=== PATIENT | male | born 1965 | race Caucasian/White ===

== ENCOUNTER 2019-09-25 08:27 | Emergency (ER) | payer MEDICARE, SELFPAY ==
[2019-09-25] VITALS (8 sets, daily range): BP systolic 124–134; BP diastolic 77–99; PULSE 90–111; RESP 16–18; TEMP 36.8; O2SAT 90–99; BMI 27.8
--- NOTE | 2019-09-25 08:28 | ED_ITS ---
HPI - Abdominal Pain General: Chief Complaint: Abdominal Pain Stated Complaint: ABD PAIN Time Seen by Provider: 09/25/19 08:28 History of Present Illness: HPI narrative: Hx of Chron's dz. N/V/D for the past 3 to 4 days. Lower abd pain. Denies fever. MD elicited complaint: abdominal pain Pertinent past history: myocardial infarction Onset (ago): day(s) Pain Consistency: constant Location: Diffuse Severity: similar to previous episodes Quality: cramping, aching and burning Radiation: none Migration to: no migration Exacerbating factors: eating and movement Relieving factors: nothing Associated Symptoms: Reports GI cramping, diarrhea, dyspepsia, heartburn, nausea, poor appetite and vomiting; Denies fever(s) Review of Systems General: Reports: 10 or more systems reviewed and unremarkable except in HPI and below Const: Denies: fever GI: Reports: nausea, vomiting, heartburn/indigestion, diarrhea and cramping PFSH ED PFSH: Social History Smoking and tobacco status: current every day smoker Physical Exam Const: COMMON NORMALS: no apparent distress, average body habitus, oriented x3, no limitations, healthy appearing, alert and well nourished HENMT: COMMON NORMALS: normocephalic, head/scalp atraumatic, hearing grossly normal bilaterally, external ears normal, EAC's normal, TM's normal bilaterally, external nose normal, nasal mucous membranes and turbinates normal, moist oral mucous membranes, oropharynx normal, dentition normal and gingiva normal HEAD & SCALP: normocephalic and atraumatic NOSE: external nose normal and nasal mucous membranes and turbinates normal EXTERNAL EAR: Yes external ears normal EXTERNAL AUDITORY CANAL: EAC's normal TYMPANIC MEMBRANE: TM's normal bilaterally Eye: COMMON NORMALS: PERRL, EOMs intact bilaterally, conjunctivae normal, no scleral icterus, no papilledema, normal visual sanches by confrontation and fundi normal bilaterally CONJUNCTIVA: Yes conjunctivae normal PUPIL: Yes PERRL DIRECT OPHTHALMOSCOPY: Yes no papilledema and Yes fundi normal bilaterally Neck/C-Spine: COMMON NORMALS: full ROM, no lymphadenopathy, supple, no meningeal signs, no JVD, thyroid normal and no carotid bruits THYROID: thyroid normal Chest: COMMONS NORMALS: inspection of chest normal and palpation of chest normal Resp: COMMON NORMALS: normal respiratory effort, no retractions, no use of accessory muscles, clear to auscultation bilaterally and percussion normal AUSCULTATION: clear to auscultation bilaterally PERCUSSION: percussion normal Cardio: COMMON NORMALS: no JVD, regular rate, regular rhythm, S1 normal heart sound, S2 normal heart sound, no gallops, no clicks, no murmurs, no rub and per ipheral pulses 2+ throughout RATE: regular rate RHYTHM: regular rhythm HEART SOUNDS: S1 normal and S2 normal PERIPHERAL PULSES: pulses 2+ throughout GI: COMMON NORMALS: soft to palpation, no hepatosplenomegaly, no masses and no bruits INSPECTION: Yes normal to inspection AUSCULTATION: Yes hypoactive bowel sounds PALPATION: Yes soft, Yes tender, Yes no hepatosplenomegaly, No hernia, No mass and No ascites present PERCUSSION: dullness to percussion RECTAL EXAM: Yes deferred : COMMON NORMALS: Yes no CVA tenderness BLADDER/KIDNEY EXAM: Yes no CVA tenderness Back/Pelvis: COMMON NORMALS: no CVA tenderness, thoracic and lumbar spine normal to inspection, no thoracic nor lumbar tenderness, thoraco-lumbar ROM normal and straight leg raise negative bilaterally Extremity: COMMON NORMALS: normal to inspection, full ROM, normal capillary refill, no joint enlargement, no clubbing, cyanosis or edema, no calf tenderness and no pedal edema Neuro: COMMON NORMALS: oriented x3 SENSORIUM/ORIENTATION: Yes alert MENINGEAL SIGNS: Yes no meningeal signs Skin: COMMON NORMALS: no rashes or lesions noted, no wounds, skin turgor normal, no jaundice, no petechiae and no mottling GENERAL SKIN EXAM: no rashes or lesions noted and turgor normal Procedures Intubation Mg Given: 20 Mg Given: 200 Course Vital Signs: Vital signs: Vital Signs Pulse Rate 111 H 09/25/19 08:33 Respiratory Rate 16 09/25/19 08:33 Blood Pressure 132/78 09/25/19 08:33 Pulse Oximetry 97 09/25/19 08:33 Coding Level of Care Code ED Upper Cutter Out for Chg Fwd Exam Comprehensive
--- NOTE | 2019-09-25 08:35 | CTR_ITS ---
PROCEDURE INFORMATION: Exam: CT Abdomen And Pelvis With Contrast Exam date and time: 09/25/2019 9:06 AM Age: 54 years old Clinical indication: Abdominal pain; Generalized; Prior surgery; Surgery date: 6+ months; Surgery type: Small bowel; Patient HX: HX of crohn's; Additional info: Abd pain TECHNIQUE: Imaging protocol: Computed tomography of the abdomen and pelvis with intravenous contrast. Total DLP: 899.48 mGy-cm Radiation optimization: All CT scans at this facility use at least one of these dose optimization techniques: automated exposure control; mA and/or kV adjustment per patient size (includes targeted exams where dose is matched to clinical indication); or iterative reconstruction. Contrast material: Omnipaque 300; Contrast volume: 95 ml; Contrast route: IV; COMPARISON: CT abdomen pelvis w con* [id number] 07/19/2016 3:28 PM FINDINGS: Liver: Normal. No mass. Gallbladder and bile ducts: The gallbladder is surgically absent, with metallic clips in the gallbladder fossa. Pancreas: Normal. No ductal dilation. Spleen: Normal. No splenomegaly. Adrenals: Normal. No mass. Kidneys and ureters: Right mid renal anterolateral 4.8 mm calyceal calculus. Stomach and bowel: Right partial colectomy with ileo-transverse anastomosis. Short segment mid sigmoid colonic mild wall thickening (series 2, image 75), without pericolonic induration. Appendix: Right partial colectomy with ileo-transverse anastomosis. Intraperitoneal space: Mild marginal hyperdensity of a lobule of the right omentum redemonstrated with volume decrease, likely chronic infarction. Vasculature: Moderate aortic atherosclerotic calcification without aneurysm. The iliac arteries show moderate bilateral atherosclerotic calcifications without evidence of aneurysm. Calcified phleboliths are present in the lower pelvis bilaterally. Atherosclerotic calcifications are present involving the RCA coronary artery. Lymph nodes: No enlarged lymph nodes. Bladder: The urinary bladder is partially decompressed and somewhat difficult to assess. Reproductive: Unremarkable as visualized. Bones/joints: Diffuse osteopenia. Moderate chronic T12 and L1 vertebral body compression deformities. Interval L4-L5 grade 1 anterolisthesis. Anterior bridging right sacroiliac joint marginal osteophytes. Soft tissues: Incompletely imaged ben-anal probable setons, minimal surrounding inflammation as visualized.. Other findings: Mild distal ileal wall thickening without adjacent adipose induration. CT/CT abdomen pelvis w con* [id number] IMPRESSION: 1. Right partial colectomy with ileo-transverse anastomosis. 2. Short segment mid sigmoid colonic mild wall thickening, without pericolonic induration. 3. Mild distal ileal wall thickening without adjacent adipose induration. 4. Incompletely imaged ben-anal probable setons, minimal surrounding inflammation as visualized.. 5. Right renal calyceal lithiasis. 6. Interval L4-L5 grade 1 anterolisthesis. 7. Prior cholecystectomy. 8. Coronary atherosclerosis. Radiation Dose CTDIVOL = (mGy): DLP = 899.48 (mGy-cm)
--- NOTE | 2019-09-25 08:35 | XRR_ITS ---
PROCEDURE INFORMATION: Exam: XR Chest, 1 View Exam date and time: 09/25/2019 8:39 AM Age: 54 years old Clinical indication: Other: N/v/d RT side abd pain; Prior surgery; Surgery date: 6+ months; Surgery type: Small bowel, stents; Additional info: Vomiting/abd pain TECHNIQUE: Imaging protocol: XR of the chest Views: Frontal portable upright view of the chest. COMPARISON: [place] Chest 1 [place] [id number] 07/19/2016 1:20 PM FINDINGS: Lungs: The lungs are clear bilaterally. The pulmonary vasculature is normal. Pleural space: No pleural effusion. No pneumothorax. Heart/Mediastinum: The heart is normal in size and contour. Mediastinum: Stable. Bones/joints: Stable. XR/XR chest 1V portable [id number] IMPRESSION: No acute cardiopulmonary abnormality identified.
[2019-09-25] MEDS: famotidine 20 mg/2 mL INJ 40 MG IVP (08:48)
[2019-09-25] MEDS: metoclopramide 5 mg/mL SDV 2 mL 10 MG IVP (08:49)
[2019-09-25] MEDS: sodium chloride 0.9% 1,000 ML 999 ML IV ×2 (08:49→10:10)
--- NOTE | 2019-09-25 08:59 | PC.NURSE ---
Lab at bedside to draw blood. Pt given urinal with instructions for urine sample. Pt unable to void at this time.
[2019-09-25 09:07] LABS: Basophils % 0.2 %; Eosinophils # 0.1 10^3/uL (0.0-0.8); Eosinophils % 0.7 %; Hematocrit 33.7 % (42.0-52.0); Hemoglobin 9.4 g/dL (11.7-16.6); Lymphocytes # 2.3 10^3/uL (0.8-4.8); Lymphocytes % 13.1 %; Mean Corpuscular HGB Conc 27.9 g/dL (30.0-36.0); Mean Corpuscular Hemoglobin 26.6 pg (28.0-34.0); Mean Corpuscular Volume 95.2 fL (80-94); Monocytes # 2.1 10^3/uL (0.2-0.9); Neutrophils # 12.7 10^3/uL (1.8-7.7); Neutrophils % 72.6 %; Nucleated Red Blood Cells # 0.1 /100WBC; Nucleated Red Blood Cells % 0.7 %; Platelet Count 377 10^3/cmm (130-400); Red Blood Count 3.54 10^6/uL (4.1-5.3); Red Cell Distribution Width 18.1 % (12.1-15.1); White Blood Count 17.5 10^3/uL (4.0-10.0)
--- NOTE | 2019-09-25 09:22 | PC.NURSE ---
Pt states he is still unable to urinate at this time.
[2019-09-25 09:24] LABS: Lactate (Lactic Acid level) 1.7 mmol/L (0.5-2.2)
[2019-09-25 09:25] LABS: Alanine Aminotransferase 31 U/L (0-41); Albumin Level 3.1 g/dL (3.5-5.2); Alkaline Phosphatase 82 IU/L (40-130); Anion Gap 16.1 (5-19); Aspartate Amino Transferase 26 U/L (0-40); Blood Urea Nitrogen 15 mg/dL (6-20); Calcium 8.5 mg/dL (8.5-10.5); Carbon Dioxide 23 mmol/L (22-29); Chloride 107 mmol/L (98-107); Globulin 2.5 g/dL (1.3-4.6); Glomerular Filtration Rate 63.6 mL/min (90-130); Glucose 76 mg/dL (65-115); Lipase 14 U/L (13-60); Osmolality Calculated 291 mOsm/kg (285-295); Potassium 3.1 mmol/L (3.5-5.1); Sodium 143 mmol/L (136-145); Total Bilirubin 0.5 mg/dL (0.15-1.2); Total Protein 5.6 g/dL (6.6-8.7)
[2019-09-25] MEDS: iohexol 300 mg/mL 100 mL Btl IV (09:30)
--- NOTE | 2019-09-25 09:44 | PC.NURSE ---
Pt in CT
--- NOTE | 2019-09-25 09:55 | PC.NURSE ---
Pt returned from CT
--- NOTE | 2019-09-25 10:11 | PC.NURSE ---
Pt still unable to void at this time.
--- NOTE | 2019-09-25 10:12 | PC.NURSE ---
Pt noted to be desaturating to 88% on room air while asleep. Pt denies use of oxygen at home but states he is scheduled for a sleep study. Pt placed on 2LNC oxygen for support.
== END 2019-09-25 11:52 | disposition home or self-care (01) ==
PROVIDERS: Emergency Provider Family Medicine; PCP Family Medicine
DX: R10.9 Unspecified abdominal pain (principal); F17.210 Nicotine dependence, cigarettes, uncomplicated; I25.2 Old myocardial infarction
CPT/HCPCS: 12345; 36415; 71045; 74177; 80053; 83605; 83690; 85025; 87040; 96361; 96374; 96375; 99283; 99284; A9270; J2765; J3490; J7030; Q9967